=== PATIENT | female | born 1985 | race Caucasian/White ===

== ENCOUNTER 2017-01-23 08:30 | Emergency (ER) | payer MEDICAID ==
[~2017-01-23] VITALS: Ht 157.5 cm; Wt 65.8 kg
[~2017-01-23 08:30] MED LIST: CEPH500C PO; HYDR-906 PO
[2017-01-23 08:39] VITALS: Ht 157.5 cm; Wt 65.8 kg
[2017-01-23] MEDS ORDERED: SOD CHLORIDE 0.9% 1,000 ML IV STA (09:08)
[2017-01-23 09:37] LABS: ADD SCAN DIFF NO
--- NOTE | 2017-01-23 09:41 | ERD ---
ER Documentation Chief Complaint Date/Time DATE: 01/23/17 TIME: 09:22 Chief Complaint R SIDE AP THAT RADIATES TO THE BACK HPI This is a 31-year-old female who presents with RLQ pain for the past three days. Patient states pain is worse with laying flat. She has constant, sharp, 9/ 10 pain that radiates to her right lower back. Patient states she is in so much pain she can't walk. She has not taken any medication for the pain. LMP: 07/10. Patient states she has been on the Depo shot for the past 6 years for control and her period is irregular. Patient denies fever, nausea, vomiting, diarrhea, dysuria, vaginal discharge, hematuria, chest pain, shortness of breath , and dizziness. ROS All systems reviewed and are negative except as per history of present illness. Medications Home Meds Active Scripts Phenazopyridine Hcl* (Pyridium*) 200 Mg Tab, 200 MG PO TID Y for URINARY PAIN, # 15 TAB Prov:JIMENEZ WILSON PA-C 01/23/17 Ciprofloxacin Hcl* (Ciprofloxacin Hcl*) 500 Mg Tablet, 500 MG PO BID for 7 Days , TAB Prov:JIMENEZ WILSON PA-C 01/23/17 Hydrocodone/Acetaminophen ([place] 5-325 Tablet) 1 Each Tablet, 1 EACH PO Q4 for PAIN, #40 TAB Prov:AASHISH ROMAN MD 07/11/16 Cephalexin* (Cephalexin*) 500 Mg Capsule, 500 MG PO Q6, #40 CAP Prov:AASHISH ROMAN MD 07/11/16 Allergies Allergies: Coded Allergies: vancomycin (Verified Allergy, Mild, 01/23/17) Possible allergic reaction to Vancomycin IV. Swelling of the eyelids and lips and itching. PMhx/Soc History of Surgery: No Anesthesia Reaction: No Hx Neurological Disorder: No Hx Respiratory Disorders: No Hx Cardiac Disorders: No Hx Psychiatric Problems: No Hx Miscellaneous Medical Probl: No Hx Alcohol Use: No Hx Substance Use: No Hx Tobacco Use: No Smoking Status: Never smoker FmHx Patient denies family history of diabetes, high blood pressure, and cardiac disease. Physical Exam Vitals Vital Signs Date Time Temp Pulse Resp B/P Pulse Ox O2 Delivery O2 Flow Rate FiO2 01/23/17 08:39 98.7 93 18 129/79 100 Physical Exam Const: WD/WN. In mild pain, laying on bed Head: Atraumatic Eyes: Normal Conjunctiva ENT: Normal External Ears, Nose and Mouth. Resp: Clear to auscultation bilaterally, no rales, rhonchi, or wheezing Cardio: Regular rate and rhythm, no murmurs or gallops Abd: Soft, tender to palpation to right lower quadrant and BL pelvic, negative McBurney's point, negative Junior's sign, negative Rovsing's sign, non distended. Normal bowel sounds, negative psoas/obturator sign Skin: No petechiae or rashes Back: No CVA tenderness, No midline tenderness Ext: No cyanosis, or edema Neur: Awake and alert Psych: Normal Mood and Affect Result Diagram: 01/23/1792901/23/17929 Results 24 hrs Laboratory Tests Test 01/23/17 09:24 01/23/17 09:30 Urine Bacteria MODERATE Urine Bilirubin NEGATIVE Urine Clarity HAZY Urine Color LT. YELLOW Urine Glucose NEGATIVE% Urine Hemoglobin 2+ Urine Ketones NEGATIVE Urine Leukocyte Esterase 2+ Urine Microscopic RBC 5-10/HPF Urine Microscopic WBC 25-50/HPF Urine Mucus MODERATE Urine Nitrite NEGATIVE Urine Specific [place] 1.020 Urine Squamous Epithelial Cells MANY Urine Total Protein NEGATIVE Urine Urobilinogen 0.2 E.U./dL Urine pH 6.0 Alanine Aminotransferase (ALT/SGPT) 45IU/L Albumin 4.9g/dl Albumin/Globulin Ratio 1.11 Alkaline Phosphatase 58IU/L Anion Gap 24 Aspartate Amino Transf (AST/SGOT) 28IU/L Basophils # 0.110^3/ul Basophils % 0.6% Beta HCG, Quantitative < 2.4mIU/ml Blood Urea Nitrogen 13mg/dl Calcium Level 9.8mg/dl Carbon Dioxide Level 26mmol/L Chloride Level 104mmol/L Creatinine 0.84mg/dl Direct Bilirubin 0.00mg/dl Eosinophils # 0.010^3/ul Eosinophils % 0.4% Globulin 4.40g/dl Glucose Level 103mg/dl Hematocrit 43.7% Hemoglobin 14.5g/dl Indirect Bilirubin 0.8mg/dl Lipase 88U/L Lymphocytes # 2.210^3/ul Lymphocytes % 26.2% Mean Corpuscular Hemoglobin 31.3pg Mean Corpuscular Hemoglobin Concent 33.2g/dl Mean Corpuscular Volume 94.4fl Mean Platelet Volume 9.4fl Monocytes # 0.410^3/ul Monocytes % 4.8% Neutrophils # 5.810^3/ul Neutrophils % 67.6% Nucleated Red Blood Cells # 0.010^3/ul Nucleated Red Blood Cells % 0.0/100WBC Platelet Count 21436^3/UL Potassium Level 3.8mmol/L Red Blood Count 4.6310^6/ul Red Cell Distribution Width 12.4% Sodium Level 150mmol/L Total Bilirubin 0.8mg/dl Total Protein 9.3g/dl White Blood Count 8.610^3/ul Current Medications Medications (Trade) Dose Ordered Sig/Azra Route PRN Reason Start Time Stop Time Status Last Admin Dose Admin Sodium Chloride 1,000 ml @ 1,000 mls/hr Q1H STAT IV 01/23/17 09:08 01/23/17 10:07 DC 01/23/17 09:19 Ceftriaxone Sodium (Rocephin) 50 ml @ 100 mls/hr ONCE STAT IVPB 01/23/17 10:51 01/23/17 11:20 DC 01/23/17 11:01 Morphine Sulfate (morphine) 4 mg ONCE STAT IV 01/23/17 10:58 01/23/17 11:00 DC 01/23/17 11:06 Ondansetron HCl (Zofran Inj) 4 mg ONCE STAT IV 01/23/17 10:58 01/23/17 11:00 DC 01/23/17 11:06 Procedures/MDM This is a 31-year-old female who presents to the ED today for bilateral pelvic and right lower quadrant for the past 3 days, which is likely due to a urinary tract infection. It is unlikely that patient has pyelonephritis or nephrolithiasis due to physical exam. Patient did not have any CVA tenderness. Patient did not have any evidence of leukocytosis, nausea, vomiting or fever. Other differentials include but not limited to acute ovarian pathology, appendicitis, diverticulitis. Patient was tender to palpation in the right lower quadrant however pain was mostly coming from the pelvic region. In the ED IV access was established. Lab work was drawn. CBC did not show any evidence of leukocytosis or anemia. CMP did not show any evidence of renal, liver, or electrolyte abnormalities. Lipase was normal. UA did not show any evidence of hemoglobin or urinary tract infection. On urinalysis she had 2+ leukocytes and 2+ hemoglobin. Patient was treated in the ED with morphine, Zofran and 1 g of ceftriaxone. Patient was reassessed and she is doing a lot better and suitable for discharge. Patient is suitable to follow-up with her primary care physician and should precautions were given to the patient to return if she has any worsening signs or symptoms are not improving as expected. Patient understands and agrees with this plan Departure Diagnosis: Primary Impression: UTI (urinary tract infection) Urinary tract infection type: acute cystitis Hematuria presence: with hematuria Qualified Code: N30.01 - Acute cystitis with hematuria Condition: Stable JMIENEZ WILSON PA-C Jan 23, 2017 09:32
[2017-01-23 09:45] LABS: ADD UMIC YES; URINE BILIRUBIN (Dip) NEGATIVE (NEGATIVE); URINE BLOOD (Dip) 2+ (NEGATIVE); URINE COLOR LT. YELLOW (YELLOW); URINE GLUCOSE (Dip) NEGATIVE (NEGATIVE); URINE KETONES (Dip) NEGATIVE (NEGATIVE); URINE LEUKOCYTE ESTERASE (Dip) 2+ (NEGATIVE); URINE NITRITE (Dip) NEGATIVE (NEGATIVE); URINE TOTAL PROTEIN (Dip) NEGATIVE (NEGATIVE); URINE UROBILINOGEN (Dip) 0.2 E.U./dL (0.1-1.0)
[2017-01-23 09:45] LABS: BASOPHIL # 0.1 10^3/ul (0.0-0.1); BASOPHILS % 0.6 % (0.0-2.0); EOSINOPHILS % 0.4 % (0.0-7.0); HEMATOCRIT 43.7 % (37.0-47.0); HEMOGLOBIN 14.5 g/dl (12.0-16.0); LYMPHOCYTES # 2.2 10^3/ul (0.8-2.9); LYMPHOCYTES % 26.2 % (15.0-51.0); MEAN CORPUSCULAR HEMOGLOBIN 31.3 pg (29.0-33.0); MEAN CORPUSCULAR HGB CONC 33.2 g/dl (32.0-37.0); MEAN CORPUSCULAR VOLUME 94.4 fl (82.0-101.0); MEAN PLATELET VOLUME 9.4 fl (7.4-10.4); MONOCYTE # 0.4 10^3/ul (0.3-0.9); MONOCYTES % 4.8 % (0.0-11.0); NEUTROPHIL # 5.8 10^3/ul (1.6-7.5); NEUTROPHILS % 67.6 % (39.0-77.0); PLATELET COUNT 345 10^3/UL (140-415); RED BLOOD COUNT 4.63 10^6/ul (4.20-5.40); RED CELL DISTRIBUTION WIDTH 12.4 % (11.5-14.5); WHITE BLOOD COUNT 8.6 10^3/ul (4.8-10.8)
[2017-01-23 09:48] LABS: ALBUMIN 4.9 g/dl (3.3-4.9)
[2017-01-23 09:49] LABS: POTASSIUM 3.8 mmol/L (3.5-5.1)
[2017-01-23 09:51] LABS: ALBUMIN/GLOBULIN RATIO 1.11; BILIRUBIN,INDIRECT 0.8 mg/dl (0-1.1); BILIRUBIN,TOTAL 0.8 mg/dl (0.2-1.3); CREATININE 0.84 mg/dl (0.44-1.00); TOTAL PROTEIN 9.3 g/dl (6.1-8.1)
[2017-01-23 09:52] LABS: CALCIUM 9.8 mg/dl (8.4-10.2)
[2017-01-23 10:03] LABS: BACTERIA,URINE MODERATE; SQUAMOUS EPITHELIAL CELL,UR MANY
[2017-01-23 10:04] LABS: MUCUS,URINE MODERATE
[2017-01-23] MEDS ORDERED: CEFTRIAXONE 1 GM/50 ML (PMX) 50 ML IVPB STA (10:51)
[2017-01-23] MEDS ORDERED: ONDANSETRON 4 MG INJ IV STA (10:58)
[2017-01-23] MEDS ORDERED: morphine 4 MG/ML VIAL IV STA (10:58)
[2017-01-23] MEDS ORDERED: CIPR500T4 PO (11:22)
[2017-01-23] MEDS ORDERED: PHEN-538 PO (11:22)
[2017-01-23 11:47] VITALS: BP 127/80; PULSE 90; RESP 16; TEMP 98.7
== END 2017-01-23 11:42 | disposition home or self-care (01) ==
LOC: FTE 08:30
DX: N30.01 Acute cystitis with hematuria (principal); R10.2 Pelvic and perineal pain
CPT/HCPCS: 36415; 80053; 81001; 83690; 84702; 85025; 96374; 96376; J0696; J2270; J2405; J7030; Z7502; 81003

== ENCOUNTER 2017-10-28 16:40 | Inpatient (IN) | payer MEDICAID ==
[~2017-10-28] VITALS: Ht 160 cm; Wt 67.1 kg
[~2017-10-28 16:40] MED LIST changes: +CIPR500T4 PO; +PHEN-538 PO
[2017-10-28] MEDS ORDERED: ONDANSETRON 4 MG INJ IV STA ×2 (17:33→19:52)
[2017-10-28] MEDS ORDERED: morphine 4 MG/ML VIAL IV STA (17:33)
[2017-10-28 18:03] LABS: BASOPHIL # 0.1 10^3/ul (0.0-0.1); BASOPHILS % 0.3 % (0.0-2.0); EOSINOPHILS % 0.1 % (0.0-7.0); HEMATOCRIT 38.7 % (37.0-47.0); HEMOGLOBIN 13.2 g/dl (12.0-16.0); LYMPHOCYTES # 1.7 10^3/ul (0.8-2.9); LYMPHOCYTES % 11.3 % (15.0-51.0); MEAN CORPUSCULAR HEMOGLOBIN 31.1 pg (29.0-33.0); MEAN CORPUSCULAR HGB CONC 34.1 g/dl (32.0-37.0); MEAN CORPUSCULAR VOLUME 91.3 fl (82.0-101.0); MEAN PLATELET VOLUME 9.7 fl (7.4-10.4); MONOCYTE # 0.4 10^3/ul (0.3-0.9); MONOCYTES % 2.4 % (0.0-11.0); NEUTROPHIL # 12.5 10^3/ul (1.6-7.5); NEUTROPHILS % 85.5 % (39.0-77.0); PLATELET COUNT 320 10^3/UL (140-415); RED BLOOD COUNT 4.24 10^6/ul (4.20-5.40); RED CELL DISTRIBUTION WIDTH 11.9 % (11.5-14.5); WHITE BLOOD COUNT 14.6 10^3/ul (4.8-10.8)
[2017-10-28 18:12] LABS: ADD UMIC YES; UR ASCORBIC ACID NEGATIVE (NEGATIVE); UR BACTERIA FEW /HPF (NONE SEEN); UR BILIRUBIN (Dip) NEGATIVE (NEGATIVE); UR BLOOD (Dip) 1+ mg/dL (NEGATIVE); UR CLARITY CLOUDY (CLEAR); UR COLOR YELLOW (YELLOW); UR GLUCOSE (Dip) NEGATIVE (NEGATIVE); UR KETONES (Dip) 2+ mg/dL (NEGATIVE); UR LEUKOCYTE ESTERASE (Dip) NEGATIVE Leu/ul (NEGATIVE); UR MUCUS MANY /HPF (NONE SEEN); UR NITRITE (Dip) NEGATIVE (NEGATIVE); UR RBC 19 /HPF (0-5); UR SPECIFIC GRAVITY (Dip) 1.027 (1.003-1.030); UR SQUAMOUS EPITHELIAL CELL FEW /HPF (FEW); UR TOTAL PROTEIN (Dip) 1+ mg/dl (NEGATIVE); UR UROBILINOGEN (Dip) 1+ mg/dL (NEGATIVE)
[2017-10-28 18:26] LABS: ALBUMIN 4.9 g/dl (3.3-4.9); ALBUMIN/GLOBULIN RATIO 1.44; BILIRUBIN,INDIRECT 0.3 mg/dl (0-1.1); BILIRUBIN,TOTAL 0.3 mg/dl (0.2-1.3); CALCIUM 9.7 mg/dl (8.4-10.2); CREATININE 0.79 mg/dl (0.44-1.00); POTASSIUM 3.6 mmol/L (3.5-5.1); TOTAL PROTEIN 8.3 g/dl (6.1-8.1)
--- NOTE | 2017-10-28 18:30 | ERD ---
ER Documentation Chief Complaint Chief Complaint RLQ ABD PAIN, ONSET TODAY, NO N/V/D HPI This is a 32-year-old female who presents to the emergency department today complaining of right-sided abdominal pain that started this afternoon. States she does not take any medication for the pain. Denies any fevers or chills, dysuria vomiting or diarrhea. She has not had her menstrual cycle since June as she gets "a shot". ROS All systems reviewed and are negative except as per history of present illness. Medications Home Meds Active Scripts Phenazopyridine Hcl* (Pyridium*) 200 Mg Tab, 200 MG PO TID Y for URINARY PAIN, # 15 TAB Prov:JIMENEZ WILSON PA-C 01/23/17 Ciprofloxacin Hcl* (Ciprofloxacin Hcl*) 500 Mg Tablet, 500 MG PO BID for 7 Days , TAB Prov:JIMENEZ WILSON PA-C 01/23/17 Hydrocodone/Acetaminophen ([place] 5-325 Tablet) 1 Each Tablet, 1 EACH PO Q4 for PAIN, #40 TAB Prov:AASHISH ROMAN MD 07/11/16 Cephalexin* (Cephalexin*) 500 Mg Capsule, 500 MG PO Q6, #40 CAP Prov:AASHISH ROMAN MD 07/11/16 Allergies Allergies: Coded Allergies: vancomycin (Verified Allergy, Mild, 01/23/17) Possible allergic reaction to Vancomycin IV. Swelling of the eyelids and lips and itching. PMhx/Soc History of Surgery: No Anesthesia Reaction: No Hx Neurological Disorder: No Hx Respiratory Disorders: No Hx Cardiac Disorders: No Hx Psychiatric Problems: No Hx Miscellaneous Medical Probl: No Hx Alcohol Use: No Hx Substance Use: No Hx Tobacco Use: No Smoking Status: Never smoker Physical Exam Vitals Vital Signs Date Time Temp Pulse Resp B/P Pulse Ox O2 Delivery O2 Flow Rate FiO2 10/28/17 16:44 97.9 89 19 121/82 100 Physical Exam Const: mild distress Head: Atraumatic Eyes: Normal Conjunctiva ENT: Normal External Ears, Nose and Mouth. Neck: Full range of motion..~ No meningismus. Resp: Clear to auscultation bilaterally Cardio: Regular rate and rhythm, no murmurs Abd: Soft,right sided abdominal pain non distended. Normal bowel sounds Skin: No petechiae or rashes Back: No midline or flank tenderness Ext: No cyanosis, or edema Neur: Awake and alert Psych: Normal Mood and Affect Result Diagram: 10/28/17175410/28/171754 Results 24 hrs Laboratory Tests Test 10/28/17 17:55 White Blood Count 14.610^3/ul Red Blood Count 4.2410^6/ul Hemoglobin 13.2g/dl Hematocrit 38.7% Mean Corpuscular Volume 91.3fl Mean Corpuscular Hemoglobin 31.1pg Mean Corpuscular Hemoglobin Concent 34.1g/dl Red Cell Distribution Width 11.9% Platelet Count 27732^3/UL Mean Platelet Volume 9.7fl Neutrophils % 85.5% Lymphocytes % 11.3% Monocytes % 2.4% Eosinophils % 0.1% Basophils % 0.3% Nucleated Red Blood Cells % 0.0/100WBC Neutrophils # 12.510^3/ul Lymphocytes # 1.710^3/ul Monocytes # 0.410^3/ul Eosinophils # 0.010^3/ul Basophils # 0.110^3/ul Nucleated Red Blood Cells # 0.010^3/ul Urine Color YELLOW Urine Clarity CLOUDY Urine pH 7.0 Urine Specific [place] 1.027 Urine Ketones 2+mg/dL Urine Nitrite NEGATIVEmg/dL Urine Bilirubin NEGATIVEmg/dL Urine Urobilinogen 1+mg/dL Urine Leukocyte Esterase NEGATIVELeu/ul Urine Microscopic RBC 19/HPF Urine Microscopic WBC 5/HPF Urine Squamous Epithelial Cells FEW/HPF Urine Bacteria FEW/HPF Urine Mucus MANY/HPF Urine Hemoglobin 1+mg/dL Urine Glucose NEGATIVEmg/dL Urine Total Protein 1+mg/dl Sodium Level 144mmol/L Potassium Level 3.6mmol/L Chloride Level 105mmol/L Carbon Dioxide Level 21mmol/L Anion Gap 22 Blood Urea Nitrogen 13mg/dl Creatinine 0.79mg/dl Glucose Level 155mg/dl Calcium Level 9.7mg/dl Total Bilirubin 0.3mg/dl Direct Bilirubin 0.00mg/dl Indirect Bilirubin 0.3mg/dl Aspartate Amino Transf (AST/SGOT) 20IU/L Alanine Aminotransferase (ALT/SGPT) 32IU/L Alkaline Phosphatase 68IU/L Total Protein 8.3g/dl Albumin 4.9g/dl Globulin 3.40g/dl Albumin/Globulin Ratio 1.44 Lipase 52U/L Current Medications Medications (Trade) Dose Ordered Sig/Azra Route PRN Reason Start Time Stop Time Status Last Admin Dose Admin Morphine Sulfate (morphine) 4 mg ONCE STAT IV 10/28/17 17:33 10/28/17 17:35 DC 10/28/17 17:57 Ondansetron HCl (Zofran Inj) 4 mg ONCE STAT IV 10/28/17 17:33 10/28/17 17:35 DC 10/28/17 17:57 Hydromorphone HCl (Dilaudid) 1 mg ONCE STAT IV 10/28/17 19:52 10/28/17 19:54 DC 10/28/17 19:58 Ondansetron HCl (Zofran Inj) 4 mg ONCE STAT IV 10/28/17 19:52 10/28/17 19:54 DC 10/28/17 19:58 Ondansetron HCl (Zofran Inj) 4 mg BRIDGE ORDER PRN IV NAUSEA AND/OR VOMITING 10/28/17 21:00 10/29/17 20:59 Acetaminophen 650 mg 650 mg ER BRIDGE PRN PO MILD PAIN/FEVER 10/28/17 21:00 10/29/17 20:59 Sodium Chloride (NS) 1,000 ml @ 1,000 mls/hr Q1H STAT IV 10/28/17 20:45 10/28/17 21:44 DIAGNOSTIC IMAGING REPORT Patient: TINO FINN : 1985 Age: 32 Sex: F MR #: [id number] DOS: 10/28/17 0000 Ordering MD: MARII GUEVARA PA-C Location: [facility] Room/Bed: PROCEDURE: US Non-OB Pelvis. CLINICAL INDICATION: Pain. TECHNIQUE: Multiple sonographic images of the pelvis were obtained utilizing a transabdominal technique. The images were reviewed on a PACS workstation. COMPARISON: CT of the abdomen pelvis dated 10/28/2017. FINDINGS: The uterus is visualized and measures 7.3 x 3.1 x 4.3 cm. The endometrial echo complex is normal and measures 2 mm. Bilateral ovarian teratomas measure 13.3 x 10.5 x 12.4 cm on the right, 7.7 x 7.4 x 6.5 cm on the left. Blood flow is demonstrated to both ovaries. There is no evidence of free fluid. IMPRESSION: 1. Bilateral ovarian teratomas measuring 13.3 cm on the right and 7.7 cm on the left. Blood flow is demonstrated to both ovaries. 2. Normal appearance of the uterus. RPTAT: HTAR .Ramiro Calle MD, Date Time Electronically viewed and signed by .Ramiro Calle MD, on 10/28/2017 19:46 .R/ CC: MARII GUEVARA PA-C DIAGNOSTIC IMAGING REPORT Patient: TINO FINN : 1985 Age: 32 Sex: F MR #: [id number] DOS: 10/28/17 1759 Ordering MD: MARII GUEVARA PA-C Location: [facility] Room/Bed: PROCEDURE: CT Abdomen and Pelvis without contrast. CLINICAL INDICATION: Abdominal pelvic pain. RLQ pain. TECHNIQUE: CT scan of the abdomen and pelvis without contrast was performed on a multi-detector high-resolution CT scanner. The patient was scanned without IV contrast. Coronal and sagittal reformatted images were obtained from the axial source images. DICOM images are available. CTDI equals 6.41 mGy, and DLP equals 380.01 mGy-cm. One or more of the following dose reduction techniques were used: - Automated exposure control. - Adjustment of the mA and/or kV according to patient size. - Use of iterative reconstruction technique. COMPARISON: None. FINDINGS: Lower thorax: Normal. Liver: Normal. No focal mass. Biliary: Normal gallbladder. No biliary dilatation. Pancreas: Normal. Spleen: Normal. Adrenal Glands: Normal. Genitourinary: Normal. Gastrointestinal: Normal, with normal appendix. Distended stomach. Lymph nodes: Normal. Vascular: Normal. Peritoneum/mesentery: Normal. No free fluid or free air. Reproductive organs: Large 14 cm complex fat density mass arising from the right ovary. Large 8.3 cm complex fat density mass arising from the left ovary. Findings are consistent with large benign bilateral ovarian teratomas. Musculoskeletal: Normal. IMPRESSION: 1. Bilateral very large ovarian teratomas, right greater than left. 2. Gastric distension. 3. Normal appendix. RPTAT: HMJB .Jefe Pettit MD, Date Time Electronically viewed and signed by .Jefe Pettit MD, MD on 10/28/2017 18:43 .B/ CC: MARII GUEVARA PA-C Procedures/[facility] This a 32-year-old female presents the emergency department today complaining of sudden onset right-sided abdominal pain that started this afternoon. Patient denies any other symptoms however she was in mild distress and given patient's physical exam I did obtain laboratory workup as well as imaging Laboratory workup shows an elevated white blood cell count of 14.6. Anemic. Platelets are within normal limits. Electrolytes are within normal limits. Glucose is within normal limits. Liver enzymes are within normal limits. Lipase is within normal limits. UA is negative for infection. There are 2+ ketones and 19 microscopic red blood cells. There are 5 microscopic white blood cells. Urine test is negative CT abdomen pelvis noncontrast shows a large 14 cm complex fat density mass arising from the right ovary. There is a large 8.3 cm complex fat density mass arising from the left ovary. Findings are consistent with large benign bilateral ovarian teratomas. There is gastric distention. There is normal appendix. Pelvic ultrasound shows bilateral ovarian teratomas measuring 13.3 cm on the right and 7.7 cm on the left. Blood flow is demonstrated to both ovaries. I called the laborist environmental programs specialist, Dr. Muñoz who has agreed to see and evaluate the patient who Feels that given the patient's size of her mass and her inability to find that she should be admitted for further evaluation and management at this time there is no evidence to suggest ovarian torsion. Patient symptoms at this time is consistent with abdominal pain and teratoma. Patient was given Zofran and morphine here in the emergency department and patient continued to complain of pain was therefore given Dilaudid and IV fluids. Discussed the patient with Dr. George is agreed to admit the patient to [facility] under Dr. Muñoz. Her orders placed will be placed by him or the admitting physician Departure Diagnosis: Primary Impression: Abdominal pain Abdominal location: right lower quadrant Qualified Code: R10.31 - Right lower quadrant abdominal pain Additional Impression: Teratoma Condition: MARII Preston PA-C Oct 28, 2017 18:30
--- NOTE | 2017-10-28 18:43 | RADRPT ---
PROCEDURE: CT Abdomen and Pelvis without contrast. CLINICAL INDICATION: Abdominal pelvic pain. RLQ pain. TECHNIQUE: CT scan of the abdomen and pelvis without contrast was performed on a multi-detector hi gh-resolution CT scanner. The patient was scanned without IV contrast. Coronal and sagittal reformat jordi images were obtained from the axial source images. DICOM images are available. CTDI equals 6.41 mGy, and DLP equals 380.01 mGy-cm. One or more of the following dose reduction techniques were used: - Automated exposure control. - Adjustment of the mA and/or kV according to patient size. - Use of iterative reconstruction technique. COMPARISON: None. FINDINGS: Lower thorax: Normal. Liver: Normal. No focal mass. Biliary: Normal gallbladder. No biliary dilatation. Pancreas: Normal. Spleen: Normal. Adrenal Glands: Normal. Genitourinary: Normal. Gastrointestinal: Normal, with normal appendix. Distended stomach. Lymph nodes: Normal. Vascular: Normal. Peritoneum/mesentery: Normal. No free fluid or free air. Reproductive organs: Large 14 cm complex fat density mass arising from the right ovary. Large 8.3 cm complex fat density mass arising from the left ovary. Findings are consistent with large benign dilan ateral ovarian teratomas. Musculoskeletal: Normal. IMPRESSION: 1. Bilateral very large ovarian teratomas, right greater than left. 2. Gastric distension. 3. Normal appendix. RPTAT: HMJB .eJfe Pettit MD, MD Date Time Electronically viewed and signed by .Jefe Pettit MD, MD on 10/28/2017 18:43 .B/
--- NOTE | 2017-10-28 19:46 | RADRPT ---
PROCEDURE: US Non-OB Pelvis. CLINICAL INDICATION: Pain. TECHNIQUE: Multiple sonographic images of the pelvis were obtained utilizing a transabdominal tech nique. The images were reviewed on a PACS workstation. COMPARISON: CT of the abdomen pelvis dated 10/28/2017. FINDINGS: The uterus is visualized and measures 7.3 x 3.1 x 4.3 cm. The endometrial echo complex is normal and measures 2 mm. Bilateral ovarian teratomas measure 13.3 x 10.5 x 12.4 cm on the right, 7.7 x 7.4 x 6.5 cm on the le ft. Blood flow is demonstrated to both ovaries. There is no evidence of free fluid. IMPRESSION: 1. Bilateral ovarian teratomas measuring 13.3 cm on the right and 7.7 cm on the left. Blood flow is demonstrated to both ovaries. 2. Normal appearance of the uterus. RPTAT: HTAR .Ramiro Calle MD, MD Date Time Electronically viewed and signed by .Ramiro Calle MD, on 10/28/2017 19:46 .R/
[2017-10-28] MEDS ORDERED: HYDROmorphONE 1 MG/ML SYG IV STA (19:52)
[2017-10-28] MEDS ORDERED: SOD CHLORIDE 0.9% 1,000 ML IV STA (20:45)
--- NOTE | 2017-10-28 20:55 | HP ---
Date/Time of Note Date/Time of Note DATE: 10/28/17 TIME: 20:47 Assessment/Plan VTE Prophylaxis VTE Prophylaxis Intervention: SCD's Assessment/Plan Chief Complaint/Hosp Course Bilateral very large ovarian teratomas, right greater than left Bilateral ovarian teratomas measuring 13.3 cm on the right and 7.7 cm on the left. Blood flow is demonstrated to both ovaries. Problems: Assessment/Plan Admit to Med-Surg for pain management Keep patient n.p.o. 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 PROFESSOR oncology consult HPI/ROS Admit Date/Time Admit Date/Time Hx of Present Illness Patient is a 32-year-old 3 para 3 who presents with acute onset of right lower quadrant pain OB history significant for normal spontaneous delivery 3 ROS Constitutional: improved, no complaints Eyes: no complaints ENT: no complaints Respiratory: no complaints Cardiovascular: no complaints Gastrointestinal: no complaints, pain Genitourinary: no complaints Musculoskeletal: no complaints Skin: no complaints Neurologic: no complaints Endocrine: no complaints Lymphatic: no complaints Psychological: nl mood/affect, no complaints Immunologic: no complaints PMH/Family/Social Past Surgical History Past Surgical Hx: no surgical history Social History Smoking Status: Never smoker Exam/Review of Systems Vital Signs Vitals Vital Signs Date Time Temp Pulse Resp B/P Pulse Ox O2 Delivery O2 Flow Rate FiO2 10/28/17 16:44 97.9 89 19 121/82 100 Exam Constitutional: alert, oriented, well developed Psych: nl mood/affect, no complaints Head: atraumatic, normocephalic Eyes: EOMI, PERRL, nl conjunctiva, nl lids, nl sclera ENMT: nl external ears & nose, nl lips & teeth, nl nasal mucosa & septum Neck: non-tender, supple Respiratory: clear to auscultation, normal air movement Cardiovascular: nl pulses, regular rate and rhythm Gastrointestinal: bowel sounds, distended, firm, hepatomegaly, mass, nl liver, spleen, non-tender, other (Abdominal tenderness greater on the right lower quadrant), rebound or guarding, soft, splenomegaly, surgical scars, tender, No ascites Genitourinary - Female: CMT, CVA tenderness, nl adnexae, nl external genitalia , other (Right adnexal pain), uterus Musculoskeletal: nl extremities to inspection Extremities: normal pulses 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 CLINICAL INDICATION: Abdominal pelvic pain. RLQ pain. TECHNIQUE: CT scan of the abdomen and pelvis without contrast was performed on a multi-detector high-resolution CT scanner. The patient was scanned without IV contrast. Coronal and sagittal reformatted images were obtained from the axial source images. DICOM images are available. CTDI equals 6.41 mGy, and DLP equals 380.01 mGy-cm. One or more of the following dose reduction techniques were used: - Automated exposure control. - Adjustment of the mA and/or kV according to patient size. - Use of iterative reconstruction technique. COMPARISON: None. FINDINGS: Lower thorax: Normal. Liver: Normal. No focal mass. Biliary: Normal gallbladder. No biliary dilatation. Pancreas: Normal. Spleen: Normal. Adrenal Glands: Normal. Genitourinary: Normal. Gastrointestinal: Normal, with normal appendix. Distended stomach. Lymph nodes: Normal. Vascular: Normal. Peritoneum/mesentery: Normal. No free fluid or free air. Reproductive organs: Large 14 cm complex fat density mass arising from the right ovary. Large 8.3 cm complex fat density mass arising from the left ovary. Findings are consistent with large benign bilateral ovarian teratomas. Musculoskeletal: Normal. IMPRESSION: 1. Bilateral very large ovarian teratomas, right greater than left. 2. Gastric distension. 3. Normal appendix. RPTAT: HMJB .Jefe Pettit MD, MD Date Time Electronically viewed and signed by .Jefe Pettit MD, MD on 10/28/2017 18:43 .B/ CC: MARII GUEVARA PA-C PROCEDURE: US Non-OB Pelvis. CLINICAL INDICATION: Pain. TECHNIQUE: Multiple sonographic images of the pelvis were obtained utilizing a transabdominal technique. The images were reviewed on a PACS workstation. COMPARISON: CT of the abdomen pelvis dated 10/28/2017. FINDINGS: The uterus is visualized and measures 7.3 x 3.1 x 4.3 cm. The endometrial echo complex is normal and measures 2 mm. Bilateral ovarian teratomas measure 13.3 x 10.5 x 12.4 cm on the right, 7.7 x 7.4 x 6.5 cm on the left. Blood flow is demonstrated to both ovaries. There is no evidence of free fluid. IMPRESSION: 1. Bilateral ovarian teratomas measuring 13.3 cm on the right and 7.7 cm on the left. Blood flow is demonstrated to both ovaries. 2. Normal appearance of the uterus. RPTAT: HTAR .Ramiro Calle MD, Date Time Electronically viewed and signed by .Ramiro Calle MD, on 10/28/2017 19:46 .R/ CC: MARII GUEVARA PA-C, BAHAREH MD Oct 28, 2017 20:55
[2017-10-28] MEDS ORDERED: ONDANSETRON 4 MG INJ IV PRN ×2 (21:00→21:30)
[2017-10-28] MEDS ORDERED: ACETAMINOPHEN 325 MG TAB PO PRN (21:00)
[2017-10-28 21:21] VITALS: TEMP 99.2
[2017-10-28] MEDS ORDERED: NACL 0.9% 3 ML SYG IV SCH (21:30)
[2017-10-28] MEDS ORDERED: CEFAZOLIN 1 GM/50 ML (PMX) 50 ML IVPB SCH (22:00)
[2017-10-28 22:49] VITALS: Ht 160 cm; Wt 67.1 kg
[2017-10-28 22:53] VITALS: BP 136/81; PULSE 104; RESP 20
[2017-10-28] MEDS: LACTATED RINGER'S 1,000 ML IV SCH (23:12)
[2017-10-28] MEDS: morphine 2 MG INJ IV PRN (23:19)
[2017-10-29] VITALS (25 sets, daily range): BP systolic 100–126; BP diastolic 55–82; PULSE 80–108; RESP 11–20
[2017-10-29 05:16] LABS: BASOPHILS % 0.3 % (0.0-2.0); EOSINOPHILS % 0.1 % (0.0-7.0); HEMATOCRIT 33.7 % (37.0-47.0); HEMOGLOBIN 11.4 g/dl (12.0-16.0); LYMPHOCYTES # 2.6 10^3/ul (0.8-2.9); LYMPHOCYTES % 20.8 % (15.0-51.0); MEAN CORPUSCULAR HEMOGLOBIN 31.5 pg (29.0-33.0); MEAN CORPUSCULAR HGB CONC 33.8 g/dl (32.0-37.0); MEAN CORPUSCULAR VOLUME 93.1 fl (82.0-101.0); MEAN PLATELET VOLUME 9.6 fl (7.4-10.4); MONOCYTES % 7.6 % (0.0-11.0); NEUTROPHILS % 70.8 % (39.0-77.0); PLATELET COUNT 271 10^3/UL (140-415); RED BLOOD COUNT 3.62 10^6/ul (4.20-5.40); RED CELL DISTRIBUTION WIDTH 12.3 % (11.5-14.5); WHITE BLOOD COUNT 12.7 10^3/ul (4.8-10.8)
[2017-10-29 05:49] LABS: ALBUMIN 3.9 g/dl (3.3-4.9); ALBUMIN/GLOBULIN RATIO 1.3; BILIRUBIN,INDIRECT 0.5 mg/dl (0-1.1); BILIRUBIN,TOTAL 0.5 mg/dl (0.2-1.3); CALCIUM 8.9 mg/dl (8.4-10.2); CREATININE 0.81 mg/dl (0.44-1.00); POTASSIUM 3.6 mmol/L (3.5-5.1); TOTAL PROTEIN 6.9 g/dl (6.1-8.1)
[2017-10-29] MEDS: LACTATED RINGER'S 1,000 ML IV SCH ×4 (06:00→21:16)
[2017-10-29] MEDS: CEFAZOLIN 1 GM/50 ML (PMX) 50 ML IVPB SCH ×2 (06:00→14:39)
[2017-10-29] MEDS: morphine 2 MG INJ IV PRN (06:01)
[2017-10-29] MEDS ORDERED: CEFAZOLIN 1 GM INJ ONE (07:00)
[2017-10-29] MEDS ORDERED: LIDOCAINE 1%/EPI 30 ML INJ ONE (11:17)
[2017-10-29] MEDS ORDERED: SUCCINYLCHOLINE CHLORIDE 100 MG/5 ML SYG IV ONE (11:22)
[2017-10-29] MEDS ORDERED: MIDAZOLAM 1 MG/ML 2 ML INJ ONE (11:22)
[2017-10-29] MEDS ORDERED: PROPOFOL 20 ML ONE (11:22)
[2017-10-29] MEDS ORDERED: LIDOCAINE 2% (SDV) 5 ML INJ ONE (11:22)
[2017-10-29] MEDS ORDERED: ROCURONIUM 50 MG INJ ONE ×2 (11:22→12:54)
[2017-10-29] MEDS ORDERED: FENTAnyl 50 MCG/ML VIAL ONE (11:24)
[2017-10-29] MEDS ORDERED: FENTAnyl 50 MCG/ML VIAL IV PRN ×3 (11:30)
[2017-10-29] MEDS ORDERED: PROCHLORPERAZINE 10 MG INJ IV PRN (11:30)
[2017-10-29] MEDS ORDERED: MEPERIDINE 25 MG INJ IV PRN (11:30)
[2017-10-29] MEDS ORDERED: ONDANSETRON 4 MG INJ IV PRN (11:30)
[2017-10-29] MEDS ORDERED: DIPHENHYDRAMINE 50 MG INJ IV PRN ×2 (11:30→15:30)
[2017-10-29] MEDS ORDERED: HYDROmorphONE (0.2 MG/ML) 10ML SYG IV PRN ×3 (11:30)
[2017-10-29] MEDS ORDERED: ONDANSETRON 4 MG INJ ONE (11:32)
[2017-10-29] MEDS ORDERED: PHENYLephrine (100 MCG/ML) 5ML SYG ONE (11:32)
[2017-10-29] MEDS ORDERED: DEXAMETHASONE 4 MG/ML 1 ML INJ ONE (11:33)
[2017-10-29] MEDS ORDERED: FAMOTIDINE 20 MG INJ ONE (11:33)
[2017-10-29] MEDS ORDERED: EPHEDrine SULFATE 50 MG/5 ML SYG ONE (12:13)
[2017-10-29] MEDS ORDERED: HYDROmorphONE 2 MG/ML SYG ONE (12:52)
[2017-10-29] MEDS ORDERED: SUGAMMADEX SODIUM 200 MG/2 ML VIAL IV ONE (13:30)
--- NOTE | 2017-10-29 13:46 | OPPN ---
Date/Time of Note Date/Time of Note DATE: 10/29/17 TIME: 13:42 Operative Report Planned Procedure Procedure date Oct 29, 2017 Procedure(s) Operative laparoscopy .Right salpingophorectomy Left cystectomy ,Dermoid cyst Copious irrigation of abdominal and pelvic cavity Placement of Drain Performed by see signature line Keycase Assembler none Pre-procedure diagnosis Right ovarian torsion and bilateral ovarian mass Anesthesia Type: general Post-Procedure Post-procedure diagnosis same Findings Live Baby [], Apgars [] and [], weight [], position [], [] presentation []cord. Estimated Blood Loss: other (50) Specimen(s) none Grafts/Implant(s) none Complication(s) none BRENDA FRANCIS M.D. Oct 29, 2017 13:46
[2017-10-29] MEDS ORDERED: OXYCODONE/ACETAMINOPHEN (5/325) TAB PO PRN ×2 (15:00→15:30)
[2017-10-29] MEDS ORDERED: ACETAMINOPHEN 325 MG TAB PO PRN ×2 (15:00→15:30)
[2017-10-29] MEDS: IBUPROFEN 600 MG TAB PO SCH ×2 (15:41→21:15)
--- NOTE | 2017-10-29 17:58 | OPR ---
DATE OF OPERATION: 10/29/2017 PREOPERATIVE DIAGNOSES: Right ovarian torsion, right ovarian mass and left ovarian cyst. ESTIMATED BLOOD LOSS: Less than 50 mL. COMPLICATIONS: None. SURGEON: Elías Abarca MD ANESTHESIOLOGIST: Dr. Kebede. TYPE OF ANESTHESIA: General. PROCEDURES: Operative laparoscopy, right salpingo-oophorectomy, removal of the adnexal mass, left o vary cystectomy, copious irrigation of abdominal cavity, mini laparotomy and placement of drain. TECHNIQUE: The patient was taken to the operating room where general anesthesia was found to be blaire quate. The patient was placed in supine position and after prep and drape, a 1 cm incision was made above the umbilicus. First trocar was inserted under direct visualization of the camera. Second t rocar was inserted on the right side. That was a 10 mm trocar that was inserted under direct visual ization of the camera. Third trocar was inserted on the right side under direct visualization of th e camera. Upon examination of the abdominal and pelvic cavity and complete assessment, an atretic r ight ovary was noticed. There was a 20 cm mass on the right side that was torsed 2 or 3 times. Pic tures taken. Right salpingo-oophorectomy was done using a gyrus scissors. Then, attention was turn ed to the left ovary. A 7 to 8 cm left ovarian cyst was noticed. Using an AC Harmonic applicator a nd scalpel, the cystectomy was done, and it was placed inside the Endobag and was removed. There wa s small leakage. Copious irrigation of abdominal cavity was done. Then, the trocars were removed. Around 5 cm incision was made 2 cm above the symphysis pubis and extended to the underlying fascia. Fascia was nicked in the midline and incision was extended to the peritoneum. Peritoneal incision was extended and a medium-sized rubber distractor was placed inside the abdominal cavity. Right ov lizzette and the mass was removed intact and sent to pathology. Copious irrigation of abdominal and pelv ic cavity was done and using 2-0 chromic sutures, stitches were placed on the ovary. Around 2 to 3 liters of water was used to irrigate inside the abdominal and pelvic cavity, and a drain was p laced through the left side incision that was placed for trocar and it was fixed into place. Hemost asis achieved. Instruments removed. Lap count was correct. It is noted that prior to starting sin gle oophorectomy on the right side, there was some free fluid in the abdominal cavity and pelvic cav ity that was suctioned and sent for cytology. The peritoneum was reapproximated using 2-0 chromic s utures. Muscles were reapproximated using 2-0 chromic sutures. Fascia was closed in a running nonl ocking fashion using 0 PDS sutures. The subcutaneous tissue was reapproximated using 2-0 plain sutu res. The skin was closed using 3-0 Monocryl sutures. Dermabond was placed on top of all of the inc isions. The patient tolerated the procedure well and was transferred to the recovery room in stable condition. There was no complication regarding this procedure. Estimated blood loss was less than 50 mL. Dictated By: ELÍAS MCKINLEY/KOBY Conf#: [id number] DID#: [id number] CC: MOE BLAND MD;*EndCC*
[2017-10-29] MEDS ORDERED: IBUPROFEN 600 MG TAB PO SCH (18:00)
[2017-10-29] MEDS: FAMOTIDINE 20 MG TAB PO SCH (20:35)
[2017-10-29] MEDS: PIPER-TAZO 2.25 GM (PMX) 50 ML IVPB SCH (21:15)
[2017-10-30 00:10] VITALS: BP 90/54; RESP 18
[2017-10-30] MEDS: IBUPROFEN 600 MG TAB PO SCH ×4 (04:56→20:43)
[2017-10-30] MEDS: PIPER-TAZO 2.25 GM (PMX) 50 ML IVPB SCH ×3 (04:56→22:49)
[2017-10-30 04:59] VITALS: BP 94/57; PULSE 88; RESP 18
[2017-10-30 07:26] VITALS: BP 105/59; RESP 19
[2017-10-30] MEDS: FAMOTIDINE 20 MG TAB PO SCH ×2 (08:32→20:43)
[2017-10-30 09:12] LABS: BASOPHILS % 0.2 % (0.0-2.0); EOSINOPHILS % 0.1 % (0.0-7.0); HEMATOCRIT 30.6 % (37.0-47.0); HEMOGLOBIN 10.4 g/dl (12.0-16.0); LYMPHOCYTES # 3.1 10^3/ul (0.8-2.9); LYMPHOCYTES % 29.2 % (15.0-51.0); MEAN CORPUSCULAR VOLUME 94.2 fl (82.0-101.0); MEAN PLATELET VOLUME 9.9 fl (7.4-10.4); MONOCYTE # 0.9 10^3/ul (0.3-0.9); MONOCYTES % 8.1 % (0.0-11.0); NEUTROPHIL # 6.6 10^3/ul (1.6-7.5); NEUTROPHILS % 62.1 % (39.0-77.0); PLATELET COUNT 235 10^3/UL (140-415); RED BLOOD COUNT 3.25 10^6/ul (4.20-5.40); RED CELL DISTRIBUTION WIDTH 12.4 % (11.5-14.5); WHITE BLOOD COUNT 10.5 10^3/ul (4.8-10.8)
--- NOTE | 2017-10-30 09:22 | PN ---
Date/Time of Note Date/Time of Note DATE: 10/30/17 TIME: 09:21 Assessment/Plan VTE Prophylaxis VTE Prophylaxis Intervention: ambulation, SCD's Lines/Catheters IV Catheter Type (from Nrsg): Peripheral IV Central line still needed: Yes (Not started bowel function yet. ) Urinary Cath still in place: Yes Reason Cath still needed: other (indicate) (Notstarted yet bowel function) Assessment/Plan Chief Complaint/Hosp Course S;p LSC cystectomy, Bilateral converted to mini laparatomy at the end due to large size of the dermoid cyst with solid components intra op rupture of dermoid, massive irrigation with Joseph. Still draining of fluid , serousangious. Has not started bowel function yet, Ambulation Routine post op care Drain to remove if draining less than 40 remove sanchez Pain control Problems: Subjective 24 Hr Interval Summary Free Text/Dictation Eating regular diet, has not passed gas. Has still sanchez cathater in. Complains of pain in the Laparatomy incision in the lower abdomen,. Denies any fever or chills or any other complaint, Exam/Review of Systems Vital Signs Vitals Vital Signs Date Time Temp Pulse Resp B/P Pulse Ox O2 Delivery O2 Flow Rate FiO2 10/30/17 07:26 98.0 81 19 105/59 98 10/30/17 04:59 Nasal Cannula 2.0 Intake and Output 10/29/17 10/29/17 10/30/17 14:59 22:59 06:59 Intake Total 2200 ml 1940 ml 1750 ml Output Total 850 ml 1090 ml 2550 ml Balance 1350 ml 850 ml -800 ml Exam Constitutional: alert, distress (in mild distress due to pain in the lower abdominal incision), oriented, well developed Psych: nl mood/affect, no complaints Head: atraumatic, normocephalic ENMT: nl external ears & nose Neck: supple Respiratory: clear to auscultation, normal air movement Cardiovascular: nl pulses, regular rate and rhythm Gastrointestinal: other (appropriate tenderness in the lower abdominal incision , incision clean dry and intact, Joseph draining serosanginous fluid, Bowel sounds audible. RLQ LSC incision appropraite tenderness, no evidence of erythema, or drainage or bleeding from the incisoon noted. ), soft Musculoskeletal: nl extremities to inspection, nl gait and stance, other (SCD on) Extremities: normal pulses Neurological: SHIPPING/RECEIVING MANAGER II-XII intact, nl mental status Additional Comments Sanchez cathater draining clear urine SCD on, No calf tenderness Joseph draining serous sanguinous fluid Results Result Diagram: 10/30/17 0746 10/29/17 0425 Results 24 hrs Laboratory Tests Test 10/30/17 07:46 White Blood Count 10.5 Red Blood Count 3.25 L Hemoglobin 10.4 L Hematocrit 30.6 L Mean Corpuscular Volume 94.2 Mean Corpuscular Hemoglobin 32.0 Mean Corpuscular Hemoglobin Concent 34.0 Red Cell Distribution Width 12.4 Platelet Count 235 Mean Platelet Volume 9.9 Neutrophils % 62.1 Lymphocytes % 29.2 Monocytes % 8.1 Eosinophils % 0.1 Basophils % 0.2 Nucleated Red Blood Cells % 0.0 Neutrophils # 6.6 Lymphocytes # 3.1 H Monocytes # 0.9 Eosinophils # 0.0 Basophils # 0.0 Nucleated Red Blood Cells # 0.0 Medications Medications Current Medications Ondansetron HCl 4 mg 4 mg Q6H PRN IV NAUSEA AND/OR VOMITING Last administered on 10/29/17 20:35; Admin Dose 4 MG; Start 10/28/17 at 21:30 Piperacillin Sod/ Tazobactam Sod (Zosyn 2.25gm/ 50ml (Pmx)) 50 ml @ 100 mls/hr Q8 IVPB Last administered on 10/30/17 04:56; Admin Dose 100 MLS/HR; Start 10/29/17 at 22:00 Oxycodone/ Acetaminophen (Percocet (5/ 325)) 1 tab Q6H PRN PO PAIN LEVEL 6-10 Last administered on 10/29/17 20:35; Admin Dose 1 TAB; Start 10/29/17 at 15:30 Acetaminophen (Tylenol Tab) 650 mg Q6H PRN PO PAIN AND OR ELEVATED TEMP; Start 10/29/17 at 15:30 Ibuprofen (Motrin) 600 mg Q6H PO Last administered on 10/30/17 08:32; Admin Dose 600 MG; Start 10/29/17 at 15:30 Diphenhydramine HCl (Benadryl) 25 mg Q6H PRN IV ITCHING; Start 10/29/17 at 15: 30 Famotidine 20 mg 20 mg BID PO Last administered on 10/30/17 08:32; Admin Dose 20 MG; Start 10/29/17 at 21:00 Lactated Ringer's (Lr) 1,000 ml @ 100 mls/hr Q10H IV Last administered on 10/29 21:16; Admin Dose 100 MLS/HR; Start 10/29/17 at 15:11 TOMASA GONZALES MD Oct 30, 2017 09:21
[2017-10-30] MEDS: LACTATED RINGER'S 1,000 ML IV SCH ×2 (12:47→16:08)
[2017-10-30 15:45] VITALS: BP 111/67; RESP 19
[2017-10-30 19:41] VITALS: BP 100/57; RESP 20
[2017-10-31 02:14] VITALS: BP 102/75; RESP 18
[2017-10-31] MEDS: IBUPROFEN 600 MG TAB PO SCH ×4 (03:29→20:43)
[2017-10-31] MEDS: PIPER-TAZO 2.25 GM (PMX) 50 ML IVPB SCH ×3 (05:05→22:12)
[2017-10-31 07:59] VITALS: BP 103/64; RESP 16
[2017-10-31] MEDS: FAMOTIDINE 20 MG TAB PO SCH ×2 (09:54→20:43)
--- NOTE | 2017-10-31 14:24 | PN ---
Date/Time of Note Date/Time of Note DATE: 10/31/17 TIME: 14:13 24 hour Interval Summary October 31, 2017 postop progress note This patient is a 32 years old 3 para 3 who came to the emergency room complaining of abdominal pain. on ultrasound and CAT scan to large ovarian mass was diagnosed one 14 cm in the right ovary another one 8.3 cm the left ovary, both containing large amount of fatty tissue. She underwent a laparoscopic removal of the masses and the drained material. One of the teratoma ruptured during the laparoscopic procedure , however a mini lap also was performed for removal of any remnant of his mass as well as massive irrigation of the abdominal cavity. Postoperative drain was placed . Today the drain still is draining more than 40-50 cc. After drainage become less we will remove the catheter hopefully she will be able to be discharged home tomorrow Physical Exam Vital Signs Date Time Temp Pulse Resp B/P Pulse Ox O2 Delivery O2 Flow Rate FiO2 10/31/17 07:59 98.2 83 16 103/64 97 10/30/17 04:59 Nasal Cannula 2.0 Intake and Output 10/30/17 10/30/17 10/31/17 15:00 23:00 07:00 Intake Total 300 ml 1190 ml 1250 ml Output Total 60 ml 620 ml 120 ml Balance 240 ml 570 ml 1130 ml VTE Prophylaxis VTE Prophylaxis Intervention: ambulation Lines/Catheters IV Catheter Type: Saline Lock Central line still needed: No Sanchez in Place: No Results Result Diagram: 10/30/17 0746 10/29/17 0425 Assessment/Plan Chief Complaint/Hosp Course S;p LSC cystectomy, Bilateral converted to mini laparatomy at the end due to large size of the dermoid cyst with solid components intra op rupture of dermoid, massive irrigation with Joseph. Still draining of fluid , serousangious. Has not started bowel function yet, Ambulation Routine post op care Drain to remove if draining less than 40 remove sanchez Pain control Problems: Medications Medications Home Meds Active Scripts Phenazopyridine Hcl* (Pyridium*) 200 Mg Tab, 200 MG PO TID Y for URINARY PAIN, # 15 TAB Prov:JIMENEZ WILSON PA-C 01/23/17 Ciprofloxacin Hcl* (Ciprofloxacin Hcl*) 500 Mg Tablet, 500 MG PO BID for 7 Days , TAB Prov:JIMENEZ WILSON PA-C 01/23/17 Hydrocodone/Acetaminophen ([place] 5-325 Tablet) 1 Each Tablet, 1 EACH PO Q4 for PAIN, #40 TAB Prov:AASHISH ROMAN MD 07/11/16 Cephalexin* (Cephalexin*) 500 Mg Capsule, 500 MG PO Q6, #40 CAP Prov:AASHISH ROMAN MD 07/11/16 SANTI MENDOZA MD Oct 31, 2017 14:23
[2017-10-31 15:25] VITALS: BP 97/59; RESP 16
[2017-10-31 20:15] VITALS: BP 98/64; RESP 18
[2017-11-01 03:13] VITALS: BP 111/73; RESP 20
[2017-11-01] MEDS: IBUPROFEN 600 MG TAB PO SCH ×2 (03:33→09:16)
[2017-11-01] MEDS: LACTATED RINGER'S 1,000 ML IV SCH (04:40)
[2017-11-01] MEDS: PIPER-TAZO 2.25 GM (PMX) 50 ML IVPB SCH (06:23)
[2017-11-01 08:10] VITALS: BP 101/65; PULSE 75; RESP 14
--- NOTE | 2017-11-01 08:47 | QN ---
Documentation Comment patient is seen by the bedside,No complaints VS stable Gen NAD Abd soft NT ND Incisions intact Genitalia Deffered Pathology reviewed --->discharged with precautions --->follow up with her Gas Worker BRENDA FRANCIS M.D. Nov 01, 2017 08:47
--- NOTE | 2017-11-01 08:50 | DS ---
Date/Time of Note Date/Time of Note DATE: 11/01/17 TIME: 08:48 Discharge Summary Admission/Discharge Info Admit Date/Time Oct 28, 2017 at 20:46 Discharge Date/Time Discharge Diagnosis Right ovarian torsion and cyst Left Ovarian cyst Patient Condition: Good Procedures Laparoscpic Right salpingooophorectomy ,removal of right adnexal mass(Right ovarian torsion) Left Ovarian cystectom(Left Dermoid cyst), Hospital Course uneventful Home Meds Active Scripts Phenazopyridine Hcl* (Pyridium*) 200 Mg Tab, 200 MG PO TID Y for URINARY PAIN, # 15 TAB Prov:JIMENEZ WILSON PA-C 01/23/17 Ciprofloxacin Hcl* (Ciprofloxacin Hcl*) 500 Mg Tablet, 500 MG PO BID for 7 Days , TAB Prov:JIMENEZ WILSON PA-C 01/23/17 Hydrocodone/Acetaminophen ([place] 5-325 Tablet) 1 Each Tablet, 1 EACH PO Q4 for PAIN, #40 TAB Prov:AASHISH ROMAN MD 07/11/16 Cephalexin* (Cephalexin*) 500 Mg Capsule, 500 MG PO Q6, #40 CAP Prov:AASHISH ROMAN MD 07/11/16 Primary Care Provider Care Physician BRENDA Fair M.D. Nov 01, 2017 08:50
[2017-11-01] MEDS: FAMOTIDINE 20 MG TAB PO SCH (09:16)
== END 2017-11-01 11:45 | disposition home or self-care (01) | DRG 742 ==
LOC: FTE 16:40 → MS1 20:46
PROVIDERS: ADMIT Obstetrics & Gynecology Gynecology; ATTEND Obstetrics & Gynecology Gynecology
PROC: 0UT54ZZ Resection of Right Fallopian Tube, Percutaneous Endoscopic Approach (ICD-10-PCS; 2017-10-29)
PROC: 0UB14ZZ Excision of Left Ovary, Percutaneous Endoscopic Approach (ICD-10-PCS; 2017-10-29)
PROC: 0W9J00Z Drainage of Pelvic Cavity with Drainage Device, Open Approach (ICD-10-PCS; 2017-10-29)
PROC: 3E1M38Z Irrigation of Peritoneal Cavity using Irrigating Substance, Percutaneous Approach (ICD-10-PCS; 2017-10-29)
PROC: 0UT04ZZ Resection of Right Ovary, Percutaneous Endoscopic Approach (ICD-10-PCS; principal; 2017-10-29 10:00)
DX: D27.0 Benign neoplasm of right ovary (principal); N83.511 Torsion of right ovary and ovarian pedicle; D27.1 Benign neoplasm of left ovary; Z53.31 Laparoscopic surgical procedure converted to open procedure
CPT/HCPCS: 36415; 74176; 76856; 80053; 81001; 83690; 84703; 85025; 86304; 87086; 88104; 88305; 88307; 96374; 96375; 96376; J0690; J1100; J1170; J2175; J2250; J2270; J2370; J2405; J2543; J3010; J7030; J7120